=== PATIENT | male | born 1985 | race Caucasian/White ===

== ENCOUNTER 2020-07-08 20:28 | Emergency (ER) | payer BC ==
[~2020-07-08] VITALS: Ht 180.3 cm; Wt 132.9 kg
[2020-07-08 20:33] VITALS: Ht 180.3 cm; Wt 132.9 kg
[2020-07-08 22:17] VITALS: BP 150/89
== END 2020-07-08 22:17 | disposition home or self-care (01) ==
LOC: ED 20:28
DX: S41.112A Laceration without foreign body of left upper arm, initial encounter (principal); W45.8XXA Other foreign body or object entering through skin, initial encounter; Y93.89 Activity, other specified; Y92.89 Other specified places as the place of occurrence of the external cause; Y99.8 Other external cause status
CPT/HCPCS: J2001

== ENCOUNTER 2020-07-15 18:39 | Emergency (ER) | payer BC ==
[~2020-07-15] VITALS: Ht 180.3 cm; Wt 133.8 kg
[2020-07-15 19:03] VITALS: BP 169/92; Ht 180.3 cm; Wt 133.8 kg
== END 2020-07-15 20:35 | disposition home or self-care (01) ==
LOC: ED 18:39
DX: S63.502A Unspecified sprain of left wrist, initial encounter (principal); S41.012D Laceration without foreign body of left shoulder, subsequent encounter; X58.XXXA Exposure to other specified factors, initial encounter; Y93.89 Activity, other specified; Y92.89 Other specified places as the place of occurrence of the external cause; Y99.8 Other external cause status